=== PATIENT | male | born 1990 | race American Indian/Alaskan Native ===

== ENCOUNTER 2022-09-26 23:39 | Emergency (ER) | payer SELFPAY ==
[2022-09-27] MEDS ORDERED: Sodium Chloride 0.9% 1000 ML 1,000 ML IV STA (00:18)
--- NOTE | 2022-09-27 00:18 | ERPHSYRPT ---
- History of Present Illness Time Seen by Provider: 09/27/22 00:13 Source: patient Exam Limitations: no limitations Patient Subjective Stated Complaint: pt reports that he is here for "dehydration", he reports that when he woke up with morning around 0700 he felt dehydrated and has been having bilat lower legs/ feet/ flank discomfort that he describes as a "tightness". Triage Nursing Assessment: pt ambulated to room 6 independently with slow steady gait after standing on scale for weight acquisition. pt is alert and oriented times three, able to move all extremities, able to speak in complete sentences, and with resp even and unlabored. pt denies cp, abd pain, n/v, sob, difficulty with urination or bowel elimination. heart sound regular and normal, lung sounds clear bilaterally anterior, bilat radial and pedal pulses palpable and equal. able to wiggle toes, denies numbness or tingling. color, cap refill, and sensation normal to all extremities. no edema noted. pt has been using bathroom without difficulty as well as eating/ drinking without issue. Physician History: This is a 32-year-old white male patient who states he woke up this morning, 09/26/2022 at 7 AM and felt as though he was dehydrated. He felt some tightness but no specific areas of pain in his legs. He has had no nausea vomiting or diarrhea. He has no chest pain. He denies shortness of breath. He is has not been on any new medications. He is not on any medications. Timing/Duration: today Severity: mild Associated Symptoms: denies symptoms Allergies/Adverse Reactions: Penicillins Allergy (Intermediate, Verified 09/26/22 23:47) Rash vancomycin Allergy (Intermediate, Verified 09/26/22 23:47) Rash Home Medications: No Reportable Medications [No Reported Medications] 09/26/22 [History] Hx Tetanus, Diphtheria Vaccination/Date Given: No Hx Influenza Vaccination/Date Given: No Hx Pneumococcal Vaccination/Date Given: No Immunizations Up to Date: No Travel Risk - International Travel Have you traveled outside of the country in past 3 weeks: No - Coronavirus Screening Are you exhibiting any of the following symptoms?: No Close contact with a COVID-19 positive Pt in past 14-21 Days: No - Vaccine Status Have you recieved a Covid-19 vaccination: Yes [employer]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 - Vaccination Dates Date of 2cond Vaccination (if applicable): unknown - Review of Systems Constitutional: No Symptoms Eyes: No Symptoms Ears, Nose, & Throat: No Symptoms Respiratory: No Symptoms Cardiac: No Symptoms Abdominal/Gastrointestinal: No Symptoms Genitourinary Symptoms: No Symptoms Musculoskeletal: Other (Bilateral lower extremity tightness) Skin: No Symptoms Neurological: No Symptoms Psychological: No Symptoms Endocrine: No Symptoms Hematologic/Lymphatic: No Symptoms Immunological/Allergic: No Symptoms All Other Systems: Reviewed and Negative - Past Medical History Pertinent Past Medical History: Yes Neurological History: No Pertinent History ENT History: No Pertinent History Cardiac History: No Pertinent History Respiratory History: No Pertinent History Endocrine Medical History: No Pertinent History Musculoskeletal History: No Pertinent History GI Medical History: No Pertinent History History: No Pertinent History Psycho-Social History: No Pertinent History Male Reproductive Disorders: No Pertinent History - Past Surgical History Past Surgical History: Yes Neuro Surgical History: No Pertinent History Cardiac: No Pertinent History Respiratory: No Pertinent History Gastrointestinal: Appendectomy Genitourinary: No Pertinent History Musculoskeletal: Orthopedic Surgery Male Surgical History: No Pertinent History Other Surgical History: l5-s1 herniated disc - Social History Smoking Status: Current every day smoker How long have you smoked: since 2009 Exposure to second hand smoke: No Drug Use: none Patient Lives Alone: Yes - Nursing Vital Signs Nursing Vital Signs: Initial Vital Signs Temperature 98.3 F 09/26/22 23:48 Pulse Rate 70 09/26/22 23:48 Respiratory Rate 18 09/26/22 23:48 Blood Pressure 134/81 09/26/22 23:48 O2 Sat by Pulse Oximetry 100 09/26/22 23:48 Pain Scale Pain Intensity 5 - Physical Exam General Appearance: no apparent distress, alert, anxiety, thin, other (Disheveled appearing) Eye Exam: PERRL/EOMI, eyes nml inspection Ears, Nose, Throat Exam: normal ENT inspection, moist mucous membranes Neck Exam: normal inspection, non-tender, supple, full range of motion Respiratory Exam: normal breath sounds, lungs clear, airway intact, No chest tenderness, No respiratory distress Cardiovascular Exam: regular rate/rhythm, normal heart sounds, normal peripheral pulses Gastrointestinal/Abdomen Exam: soft, normal bowel sounds, No tenderness Rectal Exam: not done Back Exam: normal inspection, normal range of motion, No CVA tenderness, No vertebral tenderness Extremity Exam: normal inspection, normal range of motion, pelvis stable Neurologic Exam: alert, oriented x 3, cooperative, sitecore developer II-XII nml as tested, normal mood/affect, nml cerebellar function, nml station & gait, sensation nml Skin Exam: other (Patient's) Lymphatic Exam: No adenopathy ( feet look very dirty and unclean, unkept) SpO2 Interpretation: normal SpO2: 100 O2 Delivery: Room Air - Course Nursing assessment & vital signs reviewed: Yes Ordered Tests: Active Orders 24 hr Category Date Time Status IV Insertion STAT Care 09/27/22 00:18 Active CBC W DIFF Stat Lab 09/27/22 00:36 Completed CMP Stat Lab 09/27/22 00:36 Completed MAGNESIUM Stat Lab 09/27/22 00:36 Completed UA W/RFX UR CULTURE Stat Lab 09/26/22 23:48 Completed Medication Summary Generic Name Dose Route Start Last Admin Trade Name Freq PRN Reason Stop Dose Admin Sodium Chloride 1,000 mls @ 999 mls/hr 09/27/22 00:18 09/27/22 00:36 Sodium Chloride 0.9% 1000 Ml IV 09/27/22 01:18 999 mls/hr .[id number] STA Administration Discontinued Medications Generic Name Dose Route Start Last Admin Trade Name Freq PRN Reason Stop Dose Admin Sodium Chloride Confirm 09/27/22 00:34 Sodium Chloride 0.9% 1000 Ml Administered 09/27/22 00:35 Dose 1,000 mls @ ud .ROUTE .STK-MED ONE Lab/Rad Data: Laboratory Result Diagrams 09/27/22 00:36 09/27/22 00:36 Laboratory Results 09/27/22 09/27/22 09/26/22 Range/Units 00:36 00:36 23:48 WBC 7.9 (4.0-10.5) x10^3/uL RBC 4.12 (4.1-5.6) x10^6/uL Hgb 12.5 (12.5-18.0) g/dL Hct 38.1 L (42-50) % MCV 92.5 (78-100) fL MCH 30.3 (26-32) pg MCHC 32.8 (32-36) g/dL RDW 12.9 (11.5-14.0) % Plt Count 341 (150-450) x10^3/uL MPV 9.2 (7.5-11.0) fL Gran % 55.9 (36.0-66.0) % Immature Gran % (Auto) 0.3 (0.00-0.4) % Nucleat RBC Rel Count 0.0 (0.00-0.1) % Eos # (Auto) 0.62 H (0-0.5) x10^3/uL Immature Gran # (Auto) 0.02 (0.00-0.03) x10^3u/L Absolute Lymphs (auto) 2.13 (1.0-4.6) x10^3/uL Absolute Monos (auto) 0.63 (0.0-1.3) x10^3/uL Absolute Nucleated RBC 0.00 (0.00-0.01) x10^3u/L Lymphocytes % 27.0 (24.0-44.0) % Monocytes % 8.0 (0.0-12.0) % Eosinophils % 7.9 H (0.00-5.0) % Basophils % 0.9 (0.0-0.4) % Absolute Granulocytes 4.41 (1.4-6.9) x10^3/uL Basophils # 0.07 (0-0.4) x10^3/uL Sodium 136 L (137-145) mmol/L Potassium 3.9 (3.5-5.1) mmol/L Chloride 101 (98-107) mmol/L Carbon Dioxide 27 (22-30) mmol/L Anion Gap 11.6 (5-15) MEQ/L BUN 19 (9-20) mg/dL Creatinine 0.84 (0.66-1.25) mg/dL Estimated GFR > 60.0 ML/MIN Glucose 94 (74-106) mg/dL Calcium 8.3 L (8.4-10.2) mg/dL Magnesium 1.9 (1.6-2.3) mg/dL Total Bilirubin 0.50 (0.2-1.3) mg/dL AST 35 (17-59) U/L ALT 22 (0-50) U/L Alkaline Phosphatase 74 (38-126) U/L Serum Total Protein 6.8 (6.3-8.2) g/dL Albumin 3.8 (3.5-5.0) g/dL Urine Color Yellow (Yellow) Urine Appearance Clear (Clear) Urine pH 7.0 (4.6-8.0) Ur Specific [place] >=1.030 A (1.005-1.030) Urine Protein Trace A (Negative) Urine Glucose (UA) Negative (Negative) mg/dL Urine Ketones Negative (Negative) Urine Blood Negative (Negative) Urine Nitrite Negative (Negative) Urine Bilirubin Negative (Negative) Urine Urobilinogen 1.0 A (0.2) mg/dL Ur Leukocyte Esterase Negative (Negative) U Hyaline Cast (Auto) NONE SEEN (0-2) /LPF Urine Microscopic RBC 0-2 (0-5) /HPF Urine Microscopic WBC 0-2 (0-5) /HPF Ur Epithelial Cells None Seen (None Seen) /HPF Urine Bacteria None Seen (None Seen) /HPF Urine Culture Reflexed NO (NO) - Progress Progress: improved, re-examined Progress Note: 09/27/22 00:16 This patient's medical issue is 1 of moderate complexity. Level of complexity in the work-up performed is based on the patient's past medical history, review of the patient's medication list, review the patient's drug allergy list, history of present illness and physical findings on examination. The work-up in this patient includes placement of an intravenous line, infusion of 1 L normal saline solution, CBC, CMP and magnesium levels. We will also order a urinalysis Counseled pt/family regarding: lab results, diagnosis, need for follow-up Medical Desision Making - Diagnostic Testing Diagnostic test were ordered, analyzed, and reviewed by me: Yes - Risk of complications Minimal Risk: Minimal risk of morbidity - Departure Departure Disposition: Home Clinical Impression: Transient leg weakness Condition: Stable Critical Care Time: No Additional Instructions: Drink plenty of fluids. Follow-up with your primary care provider for further evaluation and management in the next 3 to 5 days.
[2022-09-27 00:29] LABS: Appearance Clear (Clear); Bacteria None Seen /HPF (None Seen); Bilirubin Negative (Negative); Blood Negative (Negative); Epithelial Cells None Seen /HPF (None Seen); Glucose, Urine Negative (Negative); Hyaline Casts NONE SEEN /LPF (0-2); Ketones Negative (Negative); Leukocyte Esterase Negative (Negative); Nitrite Negative (Negative); Protein,Urine Dip Trace (Negative); RBC 0-2 /HPF (0-5); Specific Gravity >=1.030 (1.005-1.030); WBC 0-2 /HPF (0-5)
[2022-09-27] MEDS ORDERED: Sodium Chloride 0.9% 1000 ML 1,000 ML ONE (00:34)
[2022-09-27 00:40] LABS: Absolute Neutrophil Ct (ANC) 4.41 x10^3/uL (1.4-6.9); BASOPHIL % 0.9 % (0.0-0.4); Basophil (Absolute #) 0.07 x10^3/uL (0-0.4); Eosinophil % 7.9 % (0.00-5.0); Eosinophil (Absolute #) 0.62 x10^3/uL (0-0.5); Hematocrit 38.1 % (42-50); Hemoglobin 12.5 g/dL (12.5-18.0); IMMATURE GRAN # 0.02 x10^3u/L (0.00-0.03); IMMATURE GRAN % 0.3 % (0.00-0.4); Lymphocyte (Absolute #) 2.13 x10^3/uL (1.0-4.6); Mean Cell Volume 92.5 fL (78-100); Mean Corpuscular Hemoglobin 30.3 pg (26-32); Mean Corpuscular Hgb Concent. 32.8 g/dL (32-36); Mean Platelet Volume 9.2 fL (7.5-11.0); Monocyte (Absolute #) 0.63 x10^3/uL (0.0-1.3); Neutrophil % 55.9 % (36.0-66.0); Platelet Count 341 x10^3/uL (150-450); Red Blood Count 4.12 x10^6/uL (4.1-5.6); Red Cell Distribution Width 12.9 % (11.5-14.0); White Blood Count 7.9 x10^3/uL (4.0-10.5)
[2022-09-27 00:49] LABS: ADD URINE CULTURE? NO (NO)
[2022-09-27 00:58] LABS: ALBUMIN 3.8 g/dL (3.5-5.0); ALKALINE PHOSPHATASE 74 U/L (38-126); ANION GAP 11.6 MEQ/L (5-15); BLOOD UREA NITROGEN 19 mg/dL (9-20); CHLORIDE 101 mmol/L (98-107); Calcium 8.3 mg/dL (8.4-10.2); Carbon Dioxide 27 mmol/L (22-30); Creatinine 1 0.84 mg/dL (0.66-1.25); EST GLOMERULAR FILTRATION RATE > 60.0 ML/MIN; Glucose 94 mg/dL (74-106); MAGNESIUM 1.9 mg/dL (1.6-2.3); Potassium 3.9 mmol/L (3.5-5.1); SGOT/AST 35 U/L (17-59); SGPT/ALT 22 U/L (0-50); SODIUM 136 mmol/L (137-145); Total Protein 6.8 g/dL (6.3-8.2)
[2022-09-27 01:44] VITALS: BP 134/81; PULSE 84; O2SAT 98
== END 2022-09-27 01:45 | disposition home or self-care (01) ==
LOC: ED 23:39
DX: R53.1 Weakness (principal); Z72.0 Tobacco use
CPT/HCPCS: 36000; 36415; 80053; 81001; 83735; 85025; 96360; 99284